=== PATIENT | female | born 1970 | race Caucasian/White ===

== ENCOUNTER 2017-11-26 21:12 | Emergency (ER) | payer OTHER ==
--- NOTE | 2017-11-26 22:17 | EDPHY ---
H & P Time Seen by Provider: 11/26/17 21:15 HPI/ROS: 47-year-old female presents complaining of left foot and ankle pain that began this afternoon. She went out dancing last night and does not recall injuring it and then it began hurting today. Review of systems General no fever no chills no weakness HEENT no eye pain no eye discharge. No eye redness, no sore throat Respiratory no cough, no shortness of breath Cardiac no chest pain, no peripheral edema GI no abdominal pain, no diarrhea, no constipation, no nausea, no vomiting no flank pain, no hematuria, no dysuria Musculoskeletal no myalgias, positive joint pain Heme no easy bruising, no easy bleeding Endo no polyuria, no polydipsia Skin no rashes, no pruritus Neuro no syncope, no dizziness, no headaches Psych is no suicidal ideation, no homicidal ideation Past Medical/Surgical History: Non contributory Social History: Occasional alcohol denies drug use Smoking Status: Never smoked Physical Exam: 47-year-old female Alert and oriented in no acute distress nontoxic appearance, afebrile Atraumatic normocephalic Neck no JVD Lungs clear to auscultation, no respiratory distress Heart regular rate and rhythm Extremities no cyanosis clubbing edema left lower extremity with ttp at prox 5th metatarsal and inferior to lateral malleolus no instability , no deformity, no ecchymoses good cap refill , good dp, pt Constitutional: Initial Vital Signs Temperature (C) 36.8 C 11/26/17 21:33 Heart Rate 75 11/26/17 21:33 Respiratory Rate 14 11/26/17 21:33 Blood Pressure 123/71 H 11/26/17 21:33 O2 Sat (%) 96 11/26/17 21:33 O2 Delivery Mode Room Air Allergies/Adverse Reactions: No Known Allergies Allergy (Unverified 11/26/17 21:33) Home Medications: Medication Instructions Recorded NK [No Known Home Meds] 11/26/17 Medical Decision Making - Diagnostics Imaging Results: Imaging Impressions Ankle X-Ray 11/26/17 21:34 Impression: 1. Normal left foot series. 2. No acute osseous abnormality left ankle. Foot X-Ray 11/26/17 21:35 Impression: 1. Normal left foot series. 2. No acute osseous abnormality left ankle. ED Course/Re-evaluation: Patient seen and evaluated for left foot and ankle pain. X-ray negative for fracture negative for soft tissue swelling Impression Left foot sprain Plan Nehemiah wrap, crutches Rest ice elevation Follow-up primary care Differential Diagnosis: Differential diagnosis considered but not limited to: Ankle sprain, ankle fracture, foot sprain, foot fracture, ankle dislocation Departure - Departure Disposition: Home, Routine, Self-Care Clinical Impression: Sprain of left foot Condition: Good Instructions: Foot Sprain (ED) Additional Instructions: Rest, ice, elevation Referrals: NONE *PRIMARY CARE P,. [Primary Care Provider] - As per Instructions
[2017-11-26 22:50] VITALS: BP 120/76
== END 2017-11-26 22:35 | disposition home or self-care (01) ==
LOC: CED 21:12
DX: S93.602A Unspecified sprain of left foot, initial encounter (principal); X58.XXXA Exposure to other specified factors, initial encounter; Y99.8 Other external cause status; Y93.41 Activity, dancing
CPT/HCPCS: 73600-PO; 73630-PO